=== PATIENT | female | born 1955 | race Caucasian/White ===

== ENCOUNTER 2017-02-21 09:58 | Emergency (ER) | payer OTHER ==
[2017-02-21] MEDS ORDERED: DIPHENHYDRAMINE HCL 50 MG/ML VIAL IV ONE (10:49)
[2017-02-21] MEDS ORDERED: ONDANSETRON HCL INJ/PF 4 MG/2 ML SDV IV ONE (10:49)
[2017-02-21] MEDS ORDERED: PROCHLORPERAZINE EDISYLATE INJ 10 MG/2 ML VIAL IV ONE (10:49)
--- NOTE | 2017-02-21 11:13 | ER Document Report ---
ED Headache - General Mode of Arrival: Ambulatory Information source: Patient TRAVEL OUTSIDE OF THE [place] IN LAST 30 DAYS: No - HPI Patient complains to provider of: Headache Associated symptoms: Other - See above <ANDREWS FROST - Last Filed: 02/21/17 11:55> <COSME TOMLINSON - Last Filed: 02/21/17 18:53> - General Chief Complaint: Headache Stated Complaint: headache Time Seen by Provider: 02/21/17 10:47 Notes: Patient is a 62 year old female, with a past medical history including migraines , who presents to the emergency department complaining of a headach onset 3 days ago. Patient also complains of nausea, sore neck, and photophobia. Patient states she has been taking Dilauded with no relief and that this drug usually helps her headaches. Patient denies falling, numbness, and weakness. Patient is currently visiting from [place]. (ANDREWS FROST) - Related Data Allergies/Adverse Reactions: escitalopram [From Lexapro] Allergy (Verified 02/21/17 10:02) naproxen Allergy (Verified 02/21/17 10:02) Past Medical History - General Information source: Patient - Social History Smoking Status: Unknown if Ever Smoked Family History: Reviewed & Not Pertinent Patient has suicidal ideation: No Patient has homicidal ideation: No Neurological Medical History: Reports: Hx Migraine <ANDREWS FROST - Last Filed: 02/21/17 11:55> Review of Systems - Review of Systems Constitutional: denies: Weakness, Other - falling EENT: See HPI, Other - photophobia Cardiovascular: No symptoms reported Respiratory: No symptoms reported Gastrointestinal: See HPI, Nausea Genitourinary: No symptoms reported Female Genitourinary: No symptoms reported Musculoskeletal: See HPI, Neck pain Skin: No symptoms reported Hematologic/Lymphatic: No symptoms reported Neurological/Psychological: See HPI, Headaches. denies: Numbness -: Yes All other systems reviewed and negative <ANDREWS FROST - Last Filed: 02/21/17 11:55> Physical Exam - Vital signs Interpretation: Normal - General General appearance: Appears well, Alert - HEENT Head: Normocephalic, Atraumatic Pupils: PERRL - Respiratory Respiratory status: No respiratory distress - Abdominal Inspection: Normal Distension: No distension Bowel sounds: Normal Tenderness: Nontender Organomegaly: No organomegaly - Extremities General upper extremity: Normal inspection, Normal ROM, Normal strength General lower extremity: Normal inspection, Normal ROM, Normal strength - Neurological Neuro grossly intact: Yes Cognition: Normal Orientation: AAOx4 [place] Coma Scale Eye Opening: Spontaneous Sergio Coma Scale Verbal: Oriented Sergio Coma Scale Motor: Obeys Commands [place] Coma Scale Total: 15 Speech: Normal Motor strength normal: LUE, RUE, LLE, RLE 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 Fluids still has a headache. Reglan ordered. 02/21/17 14:31 Patient is feeling much better at this time would like to go home. She will be discharged home with Zofran and Reglan as needed for headache. Stable for discharge. (COSME TOMLINSON) - Vital Signs Vital signs: Temp Pulse Resp BP Pulse Ox 97.5 F 53 L 20 108/43 L 100 02/21/17 14:44 02/21/17 14:44 02/21/17 14:44 02/21/17 14:44 02/21/17 14:44 - Laboratory Laboratory results interpreted by me: 02/21/17 11:00 BUN 33 H Glucose 124 H Calcium 10.3 H Discharge <ANDREWS FROST - Last Filed: 02/21/17 11:55> <COSME TOMLINSON - Last Filed: 02/21/17 18:53> - Discharge Clinical Impression: Migraine Qualifiers: Migraine type: unspecified Status migrainosus presence: without status migrainosus Intractability: not intractable Qualified Code(s): G43.909 - Migraine, unspecified, not intractable, without status migrainosus Condition: Stable Disposition: HOME, SELF-CARE Instructions: Headache ([facility]), Migraine Headache ([facility]), Dehydration ([facility]) Additional Instructions: Please follow-up with your doctor when you are able to do so. Please return you have any worsening or concerning symptoms. Prescriptions: Ondansetron [Zofran Odt 4 mg Tablet] 1 tab PO Q6HP PRN #15 tab.rapdis PRN Reason: For Nausea/Vomiting Metoclopramide HCl [Reglan 10 mg Tablet] 1 tab PO TIDP PRN #25 tablet PRN Reason: Scribe Attestation: 02/21/17 18:53 I personally performed the services described in the documentation, reviewed and edited the documentation which was dictated to the scribe in my presence, and it accurately records my words and actions. (COSME TOMLINSON) Scribe Documentation - Scribe Written by Lemuel:: lemuel Bañuelos, 02/21/17, 1201 acting as scribe for :: [place]on <ANDREWS FROST - Last Filed: 02/21/17 11:55>
[2017-02-21 11:21] LABS: ABSOLUTE BASOPHILS # (AUTO) 0.1 10^3/uL (0.0-0.2); ABSOLUTE EOSINOPHILS # (AUTO) 0.3 10^3/uL (0.0-0.6); ABSOLUTE MONOCYTES (AUTO) 0.6 10^3/uL (0.1-1.4); ABSOLUTE NEUT (AUTO) 2.8 10^3/uL (1.7-8.2); EOSINOPHILS % (AUTO) 4.8 % (0-6); HEMATOCRIT 39.5 % (36.0-47.0); HEMOGLOBIN 13.1 g/dL (12.0-15.5); HGB HCT DIFFERENCE -0.2; LYMPHOCYTES % (AUTO) 34.9 % (13-45); MEAN CORPUSCULAR HEMOGLOBIN 31.7 pg (27.0-33.4); MEAN CORPUSCULAR HGB CONC 33.2 g/dL (32.0-36.0); MEAN CORPUSCULAR VOLUME 95 fl (80-97); MONOCYTES % (AUTO) 10.4 % (3-13); RED BLOOD COUNT 4.14 10^6/uL (3.72-5.28); RED CELL DISTRIBUTION WIDTH 13.1 % (11.5-14.0); SEGMENTED NEUTROPHILS % (AUTO) 48.9 % (42-78); WHITE BLOOD COUNT 5.8 10^3/uL (4.0-10.5)
[2017-02-21] MEDS ORDERED: NORMAL SALINE 1000 ML 1,000 ML IV ONE (11:21)
[2017-02-21 11:46] LABS: ANION GAP 12 (5-19); BLOOD UREA NITROGEN 33 mg/dL (7-20); CALCIUM 10.3 mg/dL (8.4-10.2); CARBON DIOXIDE 25 mmol/L (22-30); CHLORIDE 104 mmol/L (98-107); CREATININE RESULT 0.91 mg/dL (0.52-1.25); GLUCOSE 124 mg/dL (75-110); SODIUM 141.2 mmol/L (137-145)
[2017-02-21] MEDS ORDERED: METOCLOPRAMIDE HCL INJ/PF 10 MG/2 ML SDV IV ONE (13:06)
[2017-02-21 15:09] VITALS: BP 108/43
== END 2017-02-21 14:50 | disposition home or self-care (01) ==
LOC: ER 09:58
DX: G43.909 Migraine, unspecified, not intractable, without status migrainosus (principal); H53.149 Visual discomfort, unspecified
CPT/HCPCS: 99283; 96361; 96374; 96375; 36415; 85025; 80048; J1200; J2765; J0780; J2405; J7030